=== PATIENT | male | born 1940 | race Caucasian/White ===

== ENCOUNTER → 2016-09-18 | Day surgery (SDC) | payer OTHER ==
[~2016-09-18] VITALS: Ht 188 cm; Wt 96.0 kg
[~2016-09-18] MED LIST: ACET-1487 PO; ACETAMINOPHEN 325 MG TAB PO PRN; ASPEC325 PO; ASPI-589 PO; ATROPINE SULFATE 0.1 MG/ML 5ML SYR IV PRN; CLN200 PO; DIAZEPAM 5MG TAB ONE; DOXA1TAB86 PO; METO25TA3 PO; SODIUM CHLORIDE 0.9% 1000ML 1,000 ML IV SCH; SODIUM CHLORIDE 0.9% 1000ML 250 ML IV PRN; SPRIN/30 INH; VNTHFA/IN INH; ZNTT/150 PO; [UNRECOGNIZED DRUG - OTHER]
[2016-09-18 07:37] VITALS: BP 121/34; PULSE 53; TEMP 36.5; O2SAT 95; Ht 188 cm; Wt 96.0 kg
--- NOTE | 2016-09-18 08:46 | History & Physical Bridge Note ---
H&P Re-Evaluation Bridge Note: I have examined the patient, reviewed the History & Physical and in the interval since the performance of the History & Physical I have noted the following changes of clinical significance: No changes noted
[2016-09-18 09:42] LABS: ISTAT ARTERIAL BLOOD GAS HCO3 23 meq/L (19-24); ISTAT ARTERIAL BLOOD GAS PCO2 40 mmHg (35-46); ISTAT ARTERIAL BLOOD GAS PO2 36 mmHg (80-95); ISTAT ARTERIAL BLOOD GAS pH 7.36 (7.35-7.45); ISTAT CARBON DIOXIDE 24 mEq/l (24-31)
[2016-09-18 09:42] LABS: ISTAT ARTERIAL BLOOD GAS HCO3 23 meq/L (19-24); ISTAT ARTERIAL BLOOD GAS PCO2 42 mmHg (35-46); ISTAT ARTERIAL BLOOD GAS PO2 < 32 mmHg (80-95); ISTAT ARTERIAL BLOOD GAS pH 7.35 (7.35-7.45); ISTAT CARBON DIOXIDE 24 mEq/l (24-31)
--- NOTE | 2016-09-18 09:55 | [facility] Post Operative Brief Note ---
Preliminary Procedure Note Procedure Date Sep 18, 2016. Pre-Procedure Diagnosis Valvular Disease AUC Score 7 Post-Procedure Diagnosis Normal Coronary Arteries Procedure(s) Performed Coronary Angiography, Left Heart Cath, Right Heart Cath, LV Angiography Stone Carriage Operator Dr. Regino Fall Associate Professor Of Psychology(s) David Cotton Estimated Blood Loss <20cc Medication(s) Lidocaine 1% (local infiltration), Diphenhydramine (25mg po), Diazepam (5mg po) Preliminary Findings Right dominant coronary anatomy Modest caliber normal coronaries Hyperdynamic LV function EF >65% Normal right heart pressures, LVEDP CO 6.0 L/M Severe calcific aortic stenosis CRISTINO 0.9 cm2 Normal AO size Recommendations valve replacement Specimens None Fluids (cc crystalloids) 75 Anesthesia None Procedural Complication(s) None
--- NOTE | 2016-09-18 09:58 | Discharge Instructions ---
Discharge Instructions Procedure Procedure Date: Sep 18, 2016. Reason for Visit: Aortic Valve Stenosis *. Discharge Discharge Date: Sep 18, 2016. Discharge Diagnosis: Severe calcific aortic stenosis Normal coronaries Last Recorded Wt (Kilograms): 96 Anesthesia Post Anesthesia Instructions: If you have had General Anesthesia or IV Sedation: * Do not drive today. * Resume driving when surgeon permits. * Do not make important decisions or sign legal documents today. * Call surgeon for: 1. Temperature elevations greater than 101 degrees F. 2. Uncontrollable pain. 3. Excessive bleeding. 4. Persistent nausea and vomiting. 5. Medication intolerance (nausea, vomiting or rash). * For nausea and vomiting use only clear liquids such as: tea, soda, bouillon until nausea subsides, then gradually increase diet as tolerated. * If you have any concerns or questions, call your surgeon's office. If physician is unavailable and it is an emergency, call 911 or go to the nearest emergency room. Instructions Activity Recommendations: limitations as noted below Recommended Home Diet: resume previous diet Allergies: Coded Allergies: No Known Allergies (Verified , 09/27/14) Provider Instructions ACTIVITY RECOMMENDATIONS: It is common to feel weak and fatigue for a few days. * Do not drive or operate any motorized equipment for the next three days. * Limit stair usage (2 or 3 trips a day only) for the next three days. * Do not lift anything heavier than 10 pounds for the next three days. * Do not engage in vigorous exercise or any sports for the next five days. * You may shower the day after your procedure, but do not immerse the area for three days. Cleanse the site gently with soap and water. SPECIAL CARE INSTRUCTIONS: * You may replace the pressure dressing or band-aid the morning after the procedure. * After your procedure, it is normal to have a small bruise or small lump at the site. Examine your site daily for any change in the bruise or lump, redness, swelling, drainage or numbness. Notify your doctor if any change. BLEEDING: * If there is a small amount of bleeding at the site, lie down and apply firm pressure with a clean cloth for ten minutes. When the bleeding stops, lie quietly keeping the procedure limb straight for six hours. Notify your doctor as soon as possible. * If the bleeding does not stop after ten minutes or if there is a large amount of bleeding or spurting, call 911 immediately. Continue to lie down and hold firm pressure until help arrives. SKIN IRRITATION: * You may experience some redness and/or swelling in the area where radiation was administered. If any skin irritation occurs, please contact your family physician. FOLLOW UP VISIT: Keep any scheduled doctor appointments. Follow Up Follow-up with: Juan David Zapata as scheduled Adela Awad Recommendations: Call your doctor if: * Temperature above 101 degrees * Pain not relieved by pain medicine ordered * There is increased drainage or redness from any incision * You have any unanswered questions or concerns. Your Doctors Instructions noted above were prepared by provider Regino Fall. Patient Signature Section: Patient Instructions Signature Page Ethan Curiel Patient (or Guardian) Signature/Date: I have read and understand the instructions given to me by my caregivers. Caregiver/RN/Doctor Signature/Date: The above-named patient and/or guardian has received patient instructions on this date. + Original Patient Signature Page (only) stays with chart. Please make copy for patient.
[2016-09-18 14:00] VITALS: BP 128/63; PULSE 56; O2SAT 97
--- NOTE | 2016-09-18 14:11 | CARDIAC CATH REPORT ---
PRIMARY CARE PHYSICIAN: Dr. Griffith. REFERRING: Dr. Lacy. INDICATIONS: Aortic stenosis, exertional dyspnea. PROCEDURES: Right and left heart catheterization, LV and coronary angiography. BRIEF CARDIAC HISTORY: The patient is a 76-year-old male evaluated recently for his class 2-3 symptoms of exertional dyspnea, chest pressure, and lightheadedness with activity, was found on echocardiogram to have severe aortic stenosis, aortic valve area less than 0.9 cm2. He is referred now for diagnostic cardiac catheterization for symptomatic complaints. No signs or symptoms of congestive heart failure. ACCESS: Right femoral artery, right femoral vein. CATHETERS: A 7-Tongan venous sheath, 7-Tongan Houston-Zion catheter, 5-Tongan arterial sheath, 5-Tongan angled pigtail catheter, 5-Tongan JL4, 5-Tongan 3DRC. CONTRAST: Nonionic 103 mL of Visipaque. SEDATION: None. MEDICATIONS: The patient received anxiolytic therapy with Benadryl 25 mg and Valium 5 mg p.o. prior to the procedure. IV FLUIDS: 75 mL normal saline. RADIATION EXPOSURE: 7.2 minutes of fluoroscopy time, 1645 milligrays, [place] [address]. MEDICATIONS: The patient received local infiltration access sites with 1% lidocaine. COMPLICATIONS: None. RESULTS: CORONARY ANGIOGRAPHY: The coronary anatomy is right dominant without significant calcification. LEFT MAIN: Left main is long and trifurcates to give rise to left anterior descending, a moderate sized ramus intermedius in the left circumflex. There is no disease in the left main. LEFT ANTERIOR DESCENDING: Left anterior descending is type 3 in distribution and gives rise to an early bifurcating diagonal branch of moderately large caliber at the end of its proximal third and then courses to terminate beyond the apex. Within the left anterior descending, there is minimal luminal irregularities at worst, no obstructive disease. RAMUS INTERMEDIUS: The ramus intermedius is moderately large and free of disease. LEFT CIRCUMFLEX: Left circumflex consists of obtuse marginal, single posterolateral branch and is free of disease. RIGHT CORONARY ARTERY: The right coronary is very large in caliber and length and dominant in distribution. It gives rise to an acute marginal branch which gives rise to a small early takeoff posterior descending artery, then at the AV groove a modest caliber posterior descending artery and 2 large posterior ventricular branches along the AV groove. There is no disease in the right coronary artery. LV ANGIOGRAPHY: The left ventricle was hyperdynamic, EF greater than 70%. There were no wall motion abnormalities. There was no significant mitral insufficiency. The aortic valve was calcified notably restricted in leaflet mobility. The aortic root and ascending aorta is normal in size. HEMODYNAMICS: Right heart pressures revealed a mean right atrial pressure of 3, RV pressure 25/3, PA pressure 25/13 with a pulmonary capillary wedge pressure of 10. There is no significant B wave. Aortic root pressure was 118/52 with a mean of 77. LV pressure was 161/5 with an LVEDP of 10. Simultaneous LVEDP and pulmonary capillary wedge pressures revealed good correlation and no mitral valve gradient. On right heart against left heart pullback there was no evidence of restrictive or constrictive phenomena. Cardiac outputs by thermal dilution was 6.1 liters per minute and by Alethea equation were 6.0 liters per minute. RA saturation was 59%, PA saturation was 66%, right femoral artery saturation was 89% on room air. Cardiac index was 2.7, aortic valve flow velocity revealed an aortic valve area of 0.9-1 cm2 with valve index of 0.44. FINAL IMPRESSION: 1. Severe calcific aortic stenosis, aortic valve area of 0.9 cm2 or greater. 2. Modest caliber coronaries with right dominant anatomy with no obstructive disease. 3. Hyperdynamic left ventricular systolic function, ejection fraction greater than 70%. 4. Normal right heart pressures and left end diastolic pressures. 5. Normal size aortic root and ascending aorta. RECOMMENDATIONS: The patient referred for aortic valve replacement.
[2016-09-18 14:29] LABS: ISTAT ARTERIAL BLOOD GAS HCO3 21 meq/L (19-24); ISTAT ARTERIAL BLOOD GAS PCO2 36 mmHg (35-46); ISTAT ARTERIAL BLOOD GAS PO2 58 mmHg (80-95); ISTAT ARTERIAL BLOOD GAS pH 7.37 (7.35-7.45); ISTAT CARBON DIOXIDE 22 mEq/l (24-31)
== END | disposition home or self-care (01) ==
LOC: C.CATH 07:13
PROVIDERS: ATTEND Internal Medicine Cardiovascular Disease
DX: I35.0 Nonrheumatic aortic (valve) stenosis (principal); R06.09 Other forms of dyspnea; D69.6 Thrombocytopenia, unspecified; J44.9 Chronic obstructive pulmonary disease, unspecified; F17.200 Nicotine dependence, unspecified, uncomplicated; M51.37 Other intervertebral disc degeneration, lumbosacral region; N18.3 Chronic kidney disease, stage 3 (moderate)

== ENCOUNTER → 2016-11-26 | Day surgery (SDC) | payer OTHER ==
[2016-11-11 07:37] VITALS: Ht 188 cm; Wt 94.5 kg
[~2016-11-26] VITALS: Ht 188 cm; Wt 94.5 kg
[~2016-11-26] MED LIST changes: +500ML BSS 0.3ML EPI 1:1000PF IRRIG ONE; -ACET-1487 PO; +AMVISC PLUS 0.8ML SYRINGE INT OCU ONE; -ASPEC325 PO; -ATROPINE SULFATE 0.1 MG/ML 5ML SYR IV PRN; +BSS FLUSH ONE; -DIAZEPAM 5MG TAB ONE; +ENDOCOAT 0.85ML SYRINGE INT OCU ONE; +EpINEphrine INJ 1MG/ML AMP 1 MG/ML AMP ONE; +LACTATED RINGER'S 1000ML 500 ML IV SCH; +LIDOCAINE 4% OP SOLN DROP CHARGE ONE; +LIDOCAINE 4% OP SOLN DROP CHARGE OPR SCH; +LIDOCAINE HCL 1% MPF 2 ML VIAL ONE; +MIDAZOLAM HCL 1 MG/ML 2ML VIAL ONE; +MIX: 4ML BSS 1ML EPI 1:1000 PF TOP ONE; +MOXIFLOXACIN OPH SOLN PER DROP CHARGE ONE; +POVIDONE-IODINE OP SOLN 30 ML BTL ONE; +PROPARACAINE 0.5% OP SOLN PER DROP CHARGE OPR SCH; -SODIUM CHLORIDE 0.9% 1000ML 1,000 ML IV SCH; -SODIUM CHLORIDE 0.9% 1000ML 250 ML IV PRN; +TOBRAMYCIN/DEXAMETHASONE OPH OINT PER APPLN CHARGE ONE; -[UNRECOGNIZED DRUG - OTHER]
[2016-11-26] MEDS: PHENYLEPHRINE HCL 2.5% OP SOLN PER DROP CHARGE OPR SCH ×2 (08:29→08:36)
[2016-11-26] MEDS: TROPICAMIDE 1% OP SOLN PER DROP CHARGE OPR SCH ×2 (08:29→08:37)
[2016-11-26] MEDS: CYCLOPENTOLATE HCL 1% OP SOLN PER DROP CHARGE OPR SCH ×2 (08:30→08:38)
[2016-11-26] MEDS: MOXIFLOXACIN OPH SOLN PER DROP CHARGE OPR SCH ×2 (08:31→08:39)
--- NOTE | 2016-11-26 09:29 | [facility] Post Operative Brief Note ---
Immediate Operative Summary Operative Date Nov 26, 2016. Pre-Operative Diagnosis Cataract Right Eye Post-Operative Diagnosis Same Procedure(s) Performed Right Cataract Phacoemulsification With Intraocular Lens Implant Surgeon Dr. Galeano Woodworking Machine Setter Surgeon(s) None Estimated Blood Loss 0 mL Findings right cataract Specimens None Complication(s) None Disposition
[2016-11-26 09:30] VITALS: TEMP 36.3
--- NOTE | 2016-11-26 09:30 | [facility] Operative Report ---
Operative Report Date of Service Nov 26, 2016. Operative Report Phaco with monofocal IOL DATE OF OPERATION: 11/26/16 PREOPERATIVE DIAGNOSIS: Senile nuclear cataract, right eye POSTOPERATIVE DIAGNOSIS: Senile nuclear cataract, right eye PROCEDURE PERFORMED: Phacoemulsification with intraocular lens implantation, right eye SURGEON: Dr. Conner Galeano ANESTHESIA: Topical with 1% intracameral lidocaine and monitored anesthesia care COMPLICATIONS: None DESCRIPTION OF PROCEDURE: After positively identifying the patient both verbally and by wristband in the preoperative area, the right eye was marked as the operative eye. The patient was then brought back to the operating room by the anesthesia and nursing staff where they were given a drop of Lidocaine and betadine into the operative eye. They were then sterilely prepped and draped in the standard fashion typical for ophthalmic surgery. Steri-strips were placed along the upper eyelids to keep the lashes back, and a lid speculum was placed into the operative eye. At this point, a documented time out was performed with members of the ophthalmology, nursing, and anesthesia staffs all agreeing upon the correct patient, correct location for surgery, correct procedure, and correct type and power of intraocular lens to be implanted. The microscope was then swung into position. First, a paracentesis wound was made using a sideport blade. Then, in sequence, 1% preservative-free lidocaine followed by Endocoat viscoelastic was injected into the anterior chamber. Next , the main incision was made with a keratome blade in triplanar fashion. A sharp cystotome was introduced into the eye and used to create a tear in the anterior capsule, which was directed into a continuous curvilinear capsulorrhexis using Utrata forceps. Hydrodissection was then performed with BSS on a flat-tip cannula. Next, the phacoemulsification handpiece was introduced into the eye and used to remove the nucleus in a [id number] fashion. This was done without complication and then the irrigation-aspiration handpiece was introduced into the eye and used to remove all remaining cortical and epinuclear material. Amvisc was then injected into the anterior chamber as well as into the capsular bag and using the lens injector system, an MX60 20.0 D lens, serial number [id number], and expiration date 06/2019 was injected into the capsular bag and rotated into the correct position. Next, the irrigation- aspiration handpiece was used to remove all remaining Amvisc. BSS was used to hydrate the main wound, and then BSS was injected into the paracentesis site to reach physiologic pressure and then the main wound was checked and found to be watertight. The patient was given drops of Vigamox and Tobradex ointment into the operative eye, and then the surrounding area was cleaned and dried. A clear plastic shield was placed over the eye and the patient was then sat up and taken from the operating room by the anesthesia staff having tolerated the procedure well and suffering no complications. DISPOSITION: The patient was returned to the recovery room in stable condition. I attest to the content of the Intraoperative Record and any orders documented therein. Any exceptions are noted below.
--- NOTE | 2016-11-26 09:31 | Discharge Instructions-SurgCtr ---
Discharge Instructions Date of Service Nov 26, 2016. Visit Reason for Visit: Cataract Right Eye Discharge Discharge Diagnosis / Problem: right cataract Discharge Goals Goal(s): Decrease discomfort, Improve function Activity Recommendations Activity Limitations: as noted below Anesthesia . Post Anesthesia Instructions: If you have had General Anesthesia or IV Sedation: * Do not drive today. * Resume driving when surgeon permits. * Do not make important decisions or sign legal documents today. * Call surgeon for: 1. Temperature elevations greater than 101 degrees F. 2. Uncontrollable pain. 3. Excessive bleeding. 4. Persistent nausea and vomiting. 5. Medication intolerance (nausea, vomiting or rash). * For nausea and vomiting use only clear liquids such as: tea, soda, bouillon until nausea subsides, then gradually increase diet as tolerated. * If you have any concerns or questions, call your surgeon's office. If physician is unavailable and it is an emergency, call 911 or go to the nearest emergency room. . Instructions / Follow-Up Instructions / Follow-Up ACTIVITY RECOMMENDATIONS: * Light activities. * You may walk outside, read, watch television. * You may notice redness on the white part of the eye and some blurry vision - this is normal. MEDICATIONS: Resume previous medications unless instructed otherwise by your surgeon. Start all eye drops at 11:30 am today: * Eye drops (today): Prednisone - one drop in operative eye every 2 hours while awake Ofloxacin - one drop in operative eye every 2 hours while awake Bromfenac - one drop in operative eye daily SPECIAL CARE INSTRUCTIONS: * Tape plastic shield over eye to sleep at night. Call your doctor at with any concerns or problems. FOLLOW UP VISIT: Follow-up with Dr Galeano at [facility] as scheduled. Diet Recommendations Home Diet: no limitations Procedures Procedures Performed: Right Cataract Phacoemulsification With Intraocular Lens Implant Pending Studies Studies pending at discharge: no Medical Emergencies . Who to Call and When: Medical Emergencies: If at any time you feel your situation is an emergency, please call 911 immediately. . Non-Emergent Contact Non-Emergency issues call your: Surgeon . . "Provider Documentation" section prepared by Conner Galeano. .
--- NOTE | 2016-11-26 09:37 | Anesthesia Progress Nt - [facility] ---
Anesthesia Post Op Note Date & Time Nov 26, 2016 at 09:36 Vital Signs Pain Intensity: 0 Vital Signs Past 12 Hours Date Time Temp Pulse Resp B/P (MAP) Pulse Ox O2 Delivery O2 Flow Rate FiO2 11/26/16 08:06 36.4 62 20 97/48 (64) 94 Room Air Notes Mental Status: alert / awake / arousable, participated in evaluation Pt Amnestic to Procedure: Yes Nausea / Vomiting: adequately controlled Pain: adequately controlled Airway Patency, RR, SpO2: stable & adequate BP & HR: stable & adequate Hydration State: stable & adequate Anesthetic Complications: no major complications apparent
[2016-11-26 09:53] VITALS: BP 113/74; PULSE 50; O2SAT 97
== END | disposition home or self-care (01) ==
LOC: X.SURG 07:42
PROVIDERS: ATTEND Ophthalmology
DX: H25.11 Age-related nuclear cataract, right eye (principal); J44.9 Chronic obstructive pulmonary disease, unspecified; I51.9 Heart disease, unspecified; Z79.899 Other long term (current) drug therapy; F17.210 Nicotine dependence, cigarettes, uncomplicated